=== PATIENT | female | born 1950 | race Caucasian/White ===

== ENCOUNTER 2023-05-07 06:45 | Day surgery (SDC) | payer MEDICARE ==
[2023-05-07] MEDS ORDERED: NEURONTIN ONE (06:54)
[2023-05-07] MEDS ORDERED: Decadron 4 MG ONE (06:54)
[2023-05-07] MEDS ORDERED: celeBREX 100 MG ONE (06:54)
[2023-05-07] MEDS ORDERED: TYLENOL EXTRA STRENGTH 500 MG ONE (06:54)
[2023-05-07] MEDS ORDERED: CEFAZOLIN 2 GM-D5W BAG** 2 GM/50 ML ML IV ONE (06:54)
[2023-05-07] MEDS ORDERED: Lactated Ringers 1,000 ML IV ONE ×2 (06:55→09:37)
[2023-05-07] MEDS: CEFAZOLIN 2 GM-D5W BAG** 2 GM/50 ML ML IV SCH (07:00)
[2023-05-07] MEDS: Lactated Ringers 1,000 ML IV SCH (07:05)
[2023-05-07] MEDS: Decadron 4 MG PO ONE (07:06)
[2023-05-07] MEDS: celeBREX 100 MG PO ONE (07:06)
[2023-05-07] MEDS: TYLENOL EXTRA STRENGTH 500 MG PO ONE (07:07)
[2023-05-07] MEDS: NEURONTIN PO ONE (07:08)
[2023-05-07 07:54] VITALS: O2SAT 92
[2023-05-07 08:15] LABS: Hematocrit 38.9 % (35-47); Hemoglobin 12.3 g/dL (12.0-16.0); Mean Cell Volume 95.1 fL (78-100); Mean Corpuscular Hemoglobin 30.1 pg (26-32); Mean Corpuscular Hgb Concent. 31.6 g/dL (32-36); Mean Platelet Volume 9.2 fL (7.5-11.0); Platelet Count 228 x10^3/uL (150-450); Red Blood Count 4.09 x10^6/uL (4.1-5.4); Red Cell Distribution Width 13.8 % (11.5-14.0); White Blood Count 6.1 x10^3/uL (4.0-10.5)
[2023-05-07 08:27] LABS: ALBUMIN 3.9 g/dL (3.5-5.0); ANION GAP 8.8 MEQ/L (5-15); BILIRUBIN,TOTAL 0.4 mg/dL (0.2-1.3); Calcium 9.1 mg/dL (8.4-10.2); Creatinine 1 0.42 mg/dL (0.52-1.04); EST GLOMERULAR FILTRATION RATE 103.2 ML/MIN; Potassium 3.8 mmol/L (3.5-5.1); Total Protein 6.7 g/dL (6.3-8.2)
[2023-05-07] MEDS ORDERED: Xylocaine 1% Vial 30 ML PF IJ ONE (09:37)
[2023-05-07] MEDS ORDERED: Marcaine Mpf 0.5% Vial 30 Ml ONE (09:37)
[2023-05-07] MEDS ORDERED: Decadron 4 MG INJ ONE (10:06)
[2023-05-07] MEDS ORDERED: SUBLIMAZE 100 MCG/2 ML ONE ×2 (10:06→12:21)
[2023-05-07] MEDS ORDERED: Xylocaine-Mpf 2% 5 Ml Vial ONE (10:06)
[2023-05-07] MEDS ORDERED: Zofran 4 MG/2 ML VIAL ONE (10:06)
[2023-05-07] MEDS ORDERED: DIPRIVAN 200 MG/20 ML IV ONE (10:06)
[2023-05-07] MEDS ORDERED: ROBINUL ONE (10:45)
[2023-05-07] MEDS ORDERED: KEFZOL 1 GM ONE (11:00)
--- NOTE | 2023-05-07 11:53 | XRAY ---
Indication: Left foot ORIF Lisfranc fracture dislocation. Intraoperative fluoroscopy provided for 2 minutes 43 seconds. 14 digital spot images submitted for interpretation ultimately demonstrates orthopedic buttons lateral to base 2nd metatarsal and medial to 1st cuneiform. Correlate with intraoperative findings/report.
[2023-05-07] MEDS ORDERED: TRANDATE 20 MG/4 ML SYRINGE IV ONE (12:22)
[2023-05-07 13:03] VITALS: RESP 16
[2023-05-07 13:17] VITALS: BP 152/79; PULSE 63; TEMP 97.8
--- NOTE | 2023-05-07 15:15 | XRAY ---
Two minutes and 43 seconds of fluoroscopy was used in surgery for a left foot ORIF Lisfranc fracture dislocation.
--- NOTE | 2023-05-09 08:45 | OP ---
SURGERY DATE: 05/07/2023 1025 PREOPERATIVE DIAGNOSES: 1) Left foot pain. 2) Feoghpk-Vswwh-Vzwnt type I. 3) Hereditary motor sensory neuropathy. 4) Closed fracture dislocation of tarsometatarsal joint. POSTOPERATIVE DIAGNOSES: 1) Left foot pain. 2) Aafdvry-Ztvsh-Sjxnw type I. 3) Hereditary motor sensory neuropathy. 4) Closed fracture dislocation of tarsometatarsal joint. PROCEDURE: Open reduction internal fixation of Lisfranc fracture dislocation. SURGEON: Paco Silva DPM. ATMOSPHERIC SCIENCES PROFESSOR: None. ANESTHESIA: General with intraoperative ankle block. INJECTABLES: 30 cc of a 1:1 mixture of 1% lidocaine plain and 0.5% Marcaine plain. MATERIALS: 4.0 Monocryl, 3-0 Nylon, Nelly ZipTight ESTIMATED BLOOD LOSS: Minimal. INDICATION FOR SURGERY: Nga is a very pleasant 72-year-old female very well known patient to my service for ankle pain, nail care in addition to treatment to treating members of her family. The patient did suffer a fall on Saturday evening. She went to the emergency department in [place] and they said she had a small fracture. She states that her foot buckled underneath her and she landed on the foot. There was some significant pain but this is reduced due to the neuropathy she experiences secondary to her Nzyzhle-Iwflf-Qwbtt. On clinical examination on weight-bearing x-rays it did demonstrate diastasis between the medial cuneiform and the second metatarsal along with a flex sign pathognomic for a Lisfranc injury. An MRI obtained prior to the procedure demonstrating nondisplaced hairline fracture of the proximal shaft of the second metatarsal as well as bone bruising and signal surrounding the first, second and third tarsometatarsal joints. Given this, the patient wished to remain ambulatory secondary to her Kdrhngg-Jlapc-Vdske. Options were discussed were discussed with the patient. We decided on an open reduction internal fixation with a minimally invasive approach to allow her to continue weight-bearing for the next three weeks and potentially if pain resolves, return to a weight-bearing status within that time. The patient understands all risks, complications and benefits of surgical intervention at this time including but not limited to infection, hematoma, seroma, possibility of delayed wound healing, nonwound healing and failure of surgical intervention. At this time, the patient was allowed plenty of time to ask questions which were answered to her apparent satisfaction. It is with that we decided to proceed. DESCRIPTION OF PROCEDURE AND FINDINGS: The patient was brought into the OR and placed onto the OR table in supine position. Attention was directed to the left foot where the left foot was prepped and draped in the typical sterile fashion. Under fluoroscopic guidance, a drill was utilized to aim from the medial cuneiform to the second metatarsal base placing a ZipTight across this orientation gaining excellent compression and closing down the ligamentous tear and the instability of the Lisfranc joint. Following this, a JuggerKnot was utilized for the intermediate medial cuneiform to gain compression through there this was checked under fluoroscopic guidance. Stress views were obtained and this helped to close down and stabilize the midfoot. Stress views were taken on lateral and AP view which were deemed to be adequate. The patient was closed utilizing 4-0 Monocryl and 3-0 Nylon. A dressing consisting of Betadine, Adaptic, 4x4's, Kerlix and SHWETA was applied to the left lower extremity. The patient was then reversed from anesthesia and returned to the postoperative anesthesia care unit with vital signs stable and vascular status intact. The patient handled the anesthesia as well as the procedure without significant complication. Postoperative orders as indicated in the patient's discharge chart.
== END 2023-05-07 13:45 | disposition home or self-care (01) ==
LOC: SDC 06:45
PROVIDERS: ATTEND Podiatrist Foot & Ankle Surgery
DX: S92.202A Fracture of unspecified tarsal bone(s) of left foot, initial encounter for closed fracture (principal); G60.0 Hereditary motor and sensory neuropathy; M79.672 Pain in left foot
CPT/HCPCS: 28615; 36415; 73630; 76000; 80053; 85027; 93005; C1713; C1889; J0690; J1100; J2001; J2405; J2704; J3010; A9270-GY